=== PATIENT | female | born 1995 | race Two or more races ===

== ENCOUNTER 2021-03-11 02:19 | Day surgery (SDC) | payer OTHER ==
[~2021-03-11] VITALS: Ht 160 cm; Wt 58.1 kg
== END 2021-03-11 15:50 | disposition home or self-care (01) ==
LOC: ER 02:19 → CIR.AMB 07:37
PROVIDERS: ATTEND Obstetrics & Gynecology
DX: O03.4 Incomplete spontaneous abortion without complication (principal); Z20.822 Contact with and (suspected) exposure to COVID-19